=== PATIENT | male | born 1940 | race Caucasian/White ===

== ENCOUNTER 2022-11-28 12:38 | Inpatient (IN) ==
[2022-11-28] MEDS ORDERED: DOCUSATE SODIUM 100 MG CAPSULE PO PRN (13:50)
[2022-11-28] MEDS ORDERED: GLUCAGON 1 MG VIAL IM PRN (13:50)
[2022-11-28] MEDS ORDERED: ONDANSETRON 4 MG/2 ML VIAL IV PRN (13:50)
[2022-11-28] MEDS ORDERED: ACETAMINOPHEN 325 MG TABLET PO PRN (13:50)
[2022-11-28] MEDS: SODIUM CHLORIDE 0.9% 1,000 ML IV SCH (15:00)
[2022-11-28] MEDS ORDERED: DEXTROSE 10% 250 ML BAG IV PRN (16:35)
[2022-11-28 18:05] LABS: PT Patient Result > 178.9 SECS (10.1-12.1)
[2022-11-28 18:11] LABS: INR 23.2
[2022-11-28] MEDS: metFORMIN 500 MG TABLET PO SCH ×2 (18:18→18:25)
[2022-11-28] MEDS: DEXAMETHASONE 10 MG/1 ML VIAL IV SCH (18:18)
[2022-11-28] MEDS: cefTRIAXone 1,000 MG in SODIUM CHLORIDE 0.9% 100 ML IV SCH (18:18)
[2022-11-28] MEDS: INSULIN LISPRO 100 UNIT/ML SUBCUT SCH ×2 (18:20→21:10)
[2022-11-28 19:25] LABS: PT Patient Result > 178.9 SECS (10.1-12.1)
[2022-11-28] MEDS ORDERED: PHYTONADIONE 5 MG/5 ML ORAL.SYR PO ONE (19:43)
[2022-11-28] MEDS: acetaZOLAMIDE 250 MG TABLET PO SCH (21:06)
[2022-11-28] MEDS: SIMVASTATIN 20 MG TABLET PO SCH (21:06)
[2022-11-28] MEDS: MULTIVITAMIN (OCUVITE) TABLET PO SCH (21:06)
[2022-11-29 05:25] LABS: Hematocrit 30.9 VOL% (42.0-52.0); Hemoglobin 9.7 GM/DL (14.0-18.0); Immature Granulocytes % 0.4 %; Immature Granulocytes Absolute 0.02 #; Lymphocytes # 0.4 10*3/uL (1.4-4.0); Lymphocytes % 8.4 % (21.2-54.2); Mean Corpuscular HGB Conc 31.4 GM/DL (32-36); Mean Corpuscular Volume 90.4 FL (87-102); Monocytes # 0.1 10*3/uL (0.11-0.8); Monocytes % 2.2 % (1.7-12.7); Platelet Count 182 T/CUMM (130-400); Red Blood Count 3.42 MC/CUMM (3.8-5.5); Red Cell Distribution Width 13.2 % (9.3-17.3); White Blood Count 4.5 T/CUMM (4-12)
[2022-11-29 05:46] LABS: PT Patient Result 125.6 SECS (10.1-12.1)
[2022-11-29 05:56] LABS: INR 13.7
[2022-11-29 06:01] LABS: Alanine Aminotransferase 50 U/L (16-61); Albumin 2.4 G/DL (3.4-5.0); Alkaline Phosphatase 95 U/L (45-117); Aspartate Amino Transferase 24 U/L (0-37); Bilirubin,Total < 0.39 MG/DL (0.20-1.00); Blood Urea Nitrogen 17 MG/DL (7-18); Calcium 8.9 MG/DL (8.5-10.1); Carbon Dioxide 17 MMOL/L (21-32); Chloride 110 MMOL/L (98-107); Glucose 296 MG/DL (74-106); Potassium 4.1 MMOL/L (3.5-5.1); Sodium 136 MMOL/L (136-145); Total Protein 7.2 G/DL (6.4-8.2)
[2022-11-29] MEDS: TAMSULOSIN 0.4 MG CAPSULE PO SCH (08:40)
[2022-11-29] MEDS: amLODIPine 5 MG TABLET PO SCH (08:40)
[2022-11-29] MEDS: MULTIVITAMIN (OCUVITE) TABLET PO SCH ×2 (08:40→21:29)
[2022-11-29] MEDS: FINASTERIDE 5 MG TABLET PO SCH (08:40)
[2022-11-29] MEDS: acetaZOLAMIDE 250 MG TABLET PO SCH ×2 (08:41→21:29)
[2022-11-29] MEDS: MULTIVITAMIN (CENTRUM) TABLET PO SCH (08:41)
[2022-11-29] MEDS: PANTOPRAZOLE 40 MG TABLET PO SCH (08:41)
[2022-11-29] MEDS: traMADol 50 MG TABLET PO PRN (08:49)
[2022-11-29] MEDS: INSULIN LISPRO 100 UNIT/ML SUBCUT SCH ×4 (08:50→21:29)
[2022-11-29] MEDS: FAMOTIDINE 10 MG PO SCH (08:50)
[2022-11-29] MEDS: DEXAMETHASONE 10 MG/1 ML VIAL IV SCH (08:50)
[2022-11-29] MEDS: SODIUM CHLORIDE 0.9% 1,000 ML IV SCH ×3 (09:07→21:28)
[2022-11-29] MEDS: MAGNESIUM CHLORIDE 64 MG TABLET PO SCH (09:34)
[2022-11-29] MEDS: METOPROLOL TARTRATE 50 MG TABLET PO SCH (11:33)
[2022-11-29] MEDS ORDERED: cefTRIAXone 1,000 MG in SODIUM CHLORIDE 0.9% 100 ML IV SCH (15:00)
[2022-11-29] MEDS: cefTRIAXone 1,000 MG in SODIUM CHLORIDE 0.9% 100 ML IV SCH (16:04)
[2022-11-29] MEDS ORDERED: WARFARIN 3 MG TABLET PO SCH (18:00)
[2022-11-29] MEDS: SIMVASTATIN 20 MG TABLET PO SCH (21:29)
[2022-11-30 05:40] LABS: Basophils % 0.1 % (0.0-0.8); Eosinophils % 0.2 % (0.00-10.9); Hematocrit 32.1 VOL% (42.0-52.0); Hemoglobin 9.8 GM/DL (14.0-18.0); Immature Granulocytes % 0.8 %; Immature Granulocytes Absolute 0.07 #; Lymphocytes # 0.9 10*3/uL (1.4-4.0); Lymphocytes % 10.2 % (21.2-54.2); Mean Corpuscular HGB Conc 30.5 GM/DL (32-36); Mean Platelet Volume 11.1 FL (9.6-12.0); Monocytes # 0.5 10*3/uL (0.11-0.8); Monocytes % 5.2 % (1.7-12.7); Neutrophils % 83.5 % (38.7-73.9); Platelet Count 204 T/CUMM (130-400); Red Blood Count 3.49 MC/CUMM (3.8-5.5); Red Cell Distribution Width 13.3 % (9.3-17.3); White Blood Count 8.9 T/CUMM (4-12)
[2022-11-30 05:53] LABS: INR 2.5
[2022-11-30 05:55] LABS: Osmolality,Calculated 282.8 MOS/KG (273-304); Potassium 3.9 MMOL/L (3.5-5.1)
[2022-11-30 06:11] LABS: PT Patient Result 26.2 SECS (10.1-12.1)
[2022-11-30] MEDS: acetaZOLAMIDE 250 MG TABLET PO SCH ×2 (08:49→20:10)
[2022-11-30] MEDS: amLODIPine 5 MG TABLET PO SCH (08:49)
[2022-11-30] MEDS: PANTOPRAZOLE 40 MG TABLET PO SCH (08:49)
[2022-11-30] MEDS: FINASTERIDE 5 MG TABLET PO SCH (08:49)
[2022-11-30] MEDS: MAGNESIUM CHLORIDE 64 MG TABLET PO SCH (08:49)
[2022-11-30] MEDS: TAMSULOSIN 0.4 MG CAPSULE PO SCH (08:49)
[2022-11-30] MEDS: MULTIVITAMIN (OCUVITE) TABLET PO SCH ×2 (08:49→20:10)
[2022-11-30] MEDS: MULTIVITAMIN (CENTRUM) TABLET PO SCH (08:49)
[2022-11-30] MEDS: DEXAMETHASONE 10 MG/1 ML VIAL IV SCH (08:50)
[2022-11-30] MEDS: FAMOTIDINE 10 MG PO SCH (08:50)
[2022-11-30] MEDS: INSULIN LISPRO 100 UNIT/ML SUBCUT SCH ×4 (08:51→21:25)
[2022-11-30] MEDS: METOPROLOL TARTRATE 50 MG TABLET PO SCH (10:10)
[2022-11-30] MEDS: traMADol 50 MG TABLET PO PRN (10:11)
[2022-11-30] MEDS: SODIUM CHLORIDE 0.9% 1,000 ML IV SCH ×2 (10:15→20:10)
[2022-11-30] MEDS: cefTRIAXone 1,000 MG in SODIUM CHLORIDE 0.9% 100 ML IV SCH (17:03)
[2022-11-30] MEDS: WARFARIN 5 MG TABLET PO SCH (17:09)
[2022-11-30] MEDS: SIMVASTATIN 20 MG TABLET PO SCH (20:10)
[2022-12-01] MEDS: SODIUM CHLORIDE 0.9% 1,000 ML IV SCH ×2 (06:25→17:08)
[2022-12-01] MEDS ORDERED: glyBURIDE 2.5 MG TABLET PO SCH (08:00)
[2022-12-01] MEDS: PANTOPRAZOLE 40 MG TABLET PO SCH (10:06)
[2022-12-01] MEDS: FINASTERIDE 5 MG TABLET PO SCH (10:07)
[2022-12-01] MEDS: METOPROLOL TARTRATE 50 MG TABLET PO SCH (10:07)
[2022-12-01] MEDS: MULTIVITAMIN (CENTRUM) TABLET PO SCH (10:07)
[2022-12-01] MEDS: traMADol 50 MG TABLET PO PRN ×2 (10:07→23:35)
[2022-12-01] MEDS: amLODIPine 5 MG TABLET PO SCH (10:07)
[2022-12-01] MEDS: DEXAMETHASONE 4 MG/1 ML VIAL IV SCH (10:08)
[2022-12-01] MEDS: DOCUSATE SODIUM 100 MG CAPSULE PO SCH (10:08)
[2022-12-01] MEDS: MAGNESIUM CHLORIDE 64 MG TABLET PO SCH (10:08)
[2022-12-01] MEDS: FAMOTIDINE 10 MG PO SCH (10:09)
[2022-12-01] MEDS: MULTIVITAMIN (OCUVITE) TABLET PO SCH ×2 (10:09→21:10)
[2022-12-01] MEDS: TAMSULOSIN 0.4 MG CAPSULE PO SCH (10:09)
[2022-12-01] MEDS: acetaZOLAMIDE 250 MG TABLET PO SCH ×2 (10:10→21:10)
[2022-12-01] MEDS: INSULIN LISPRO 100 UNIT/ML SUBCUT SCH ×4 (10:10→21:10)
[2022-12-01] MEDS: cefTRIAXone 1,000 MG in SODIUM CHLORIDE 0.9% 100 ML IV SCH (17:04)
[2022-12-01] MEDS: glyBURIDE 2.5 MG TABLET PO SCH (17:09)
[2022-12-01] MEDS: WARFARIN 5 MG TABLET PO SCH (17:09)
[2022-12-01] MEDS: SIMVASTATIN 20 MG TABLET PO SCH (21:10)
[2022-12-02] MEDS: SODIUM CHLORIDE 0.9% 1,000 ML IV SCH ×3 (03:30→23:32)
[2022-12-02 05:43] LABS: Basophils % 0.1 % (0.0-0.8); Eosinophils # 0.1 10*3/uL (0.0-0.87); Eosinophils % 0.9 % (0.00-10.9); Hematocrit 34.5 VOL% (42.0-52.0); Hemoglobin 10.8 GM/DL (14.0-18.0); Immature Granulocytes % 1.5 %; Immature Granulocytes Absolute 0.17 #; Lymphocytes % 9.4 % (21.2-54.2); Mean Corpuscular HGB Conc 31.3 GM/DL (32-36); Mean Corpuscular Volume 90.8 FL (87-102); Mean Platelet Volume 10.9 FL (9.6-12.0); Monocytes # 0.7 10*3/uL (0.11-0.8); Monocytes % 6.4 % (1.7-12.7); Neutrophils % 81.7 % (38.7-73.9); Platelet Count 281 T/CUMM (130-400); Red Cell Distribution Width 13.4 % (9.3-17.3)
[2022-12-02 06:01] LABS: INR 3.9; PT Patient Result 39.2 SECS (10.1-12.1)
[2022-12-02 06:03] LABS: Calcium 9.4 MG/DL (8.5-10.1); Osmolality,Calculated 275.7 MOS/KG (273-304); Potassium 3.6 MMOL/L (3.5-5.1)
[2022-12-02] MEDS: INSULIN LISPRO 100 UNIT/ML SUBCUT SCH ×4 (08:11→21:35)
[2022-12-02] MEDS: FINASTERIDE 5 MG TABLET PO SCH (08:40)
[2022-12-02] MEDS: TAMSULOSIN 0.4 MG CAPSULE PO SCH (08:41)
[2022-12-02] MEDS: DEXAMETHASONE 4 MG/1 ML VIAL IV SCH (08:41)
[2022-12-02] MEDS: MULTIVITAMIN (CENTRUM) TABLET PO SCH (08:41)
[2022-12-02] MEDS: MULTIVITAMIN (OCUVITE) TABLET PO SCH ×2 (08:41→21:35)
[2022-12-02] MEDS: amLODIPine 5 MG TABLET PO SCH (08:41)
[2022-12-02] MEDS: METOPROLOL TARTRATE 50 MG TABLET PO SCH (08:41)
[2022-12-02] MEDS: PANTOPRAZOLE 40 MG TABLET PO SCH (08:41)
[2022-12-02] MEDS: DOCUSATE SODIUM 100 MG CAPSULE PO SCH (08:41)
[2022-12-02] MEDS: MAGNESIUM CHLORIDE 64 MG TABLET PO SCH (08:41)
[2022-12-02] MEDS: acetaZOLAMIDE 250 MG TABLET PO SCH ×2 (08:41→21:35)
[2022-12-02] MEDS: FAMOTIDINE 10 MG PO SCH (08:46)
[2022-12-02] MEDS: glyBURIDE 2.5 MG TABLET PO SCH ×2 (08:46→16:02)
[2022-12-02] MEDS: cefTRIAXone 1,000 MG in SODIUM CHLORIDE 0.9% 100 ML IV SCH (16:00)
[2022-12-02] MEDS: SIMVASTATIN 20 MG TABLET PO SCH (21:35)
[2022-12-02] MEDS: traMADol 50 MG TABLET PO PRN (23:20)
[2022-12-03] MEDS ORDERED: FLUCONAZOLE 150 MG TABLET PO ONE (08:00)
[2022-12-03] MEDS: glyBURIDE 2.5 MG TABLET PO SCH ×2 (08:40→16:11)
[2022-12-03] MEDS: FAMOTIDINE 10 MG PO SCH (08:41)
[2022-12-03] MEDS: NYSTATIN 500,000 UNIT/5 ML UDCUP SWISH/SWAL SCH ×4 (08:59→22:35)
[2022-12-03] MEDS: INSULIN LISPRO 100 UNIT/ML SUBCUT SCH ×4 (09:00→23:08)
[2022-12-03] MEDS ORDERED: LACTULOSE 20 GM/30 ML UDCUP PO ONE (09:00)
[2022-12-03] MEDS: MAGNESIUM CHLORIDE 64 MG TABLET PO SCH (09:02)
[2022-12-03] MEDS: FINASTERIDE 5 MG TABLET PO SCH (09:02)
[2022-12-03] MEDS: MULTIVITAMIN (OCUVITE) TABLET PO SCH ×2 (09:02→22:36)
[2022-12-03] MEDS: MULTIVITAMIN (CENTRUM) TABLET PO SCH (09:02)
[2022-12-03] MEDS: acetaZOLAMIDE 250 MG TABLET PO SCH ×2 (09:03→22:36)
[2022-12-03] MEDS: METOPROLOL TARTRATE 50 MG TABLET PO SCH (09:04)
[2022-12-03] MEDS: amLODIPine 5 MG TABLET PO SCH (09:05)
[2022-12-03] MEDS: DOCUSATE SODIUM 100 MG CAPSULE PO SCH (09:07)
[2022-12-03] MEDS: cefTRIAXone 1,000 MG in SODIUM CHLORIDE 0.9% 100 ML IV SCH (09:07)
[2022-12-03] MEDS: TAMSULOSIN 0.4 MG CAPSULE PO SCH (09:07)
[2022-12-03] MEDS: PANTOPRAZOLE 40 MG TABLET PO SCH (09:07)
[2022-12-03] MEDS: SODIUM CHLORIDE 0.9% 1,000 ML IV SCH ×2 (09:12→20:30)
[2022-12-03] MEDS: traMADol 50 MG TABLET PO PRN (11:51)
[2022-12-03] MEDS ORDERED: TUBERCULIN SKIN TEST 0.1 ML SYRINGE INTRADERM ONE (14:16)
[2022-12-03] MEDS ORDERED: WARFARIN 4 MG TABLET PO SCH (18:00)
[2022-12-03] MEDS: SIMVASTATIN 20 MG TABLET PO SCH (22:36)
[2022-12-04] MEDS: SODIUM CHLORIDE 0.9% 1,000 ML IV SCH (06:41)
[2022-12-04] MEDS: glyBURIDE 2.5 MG TABLET PO SCH (07:15)
[2022-12-04 08:01] VITALS: BP 133/62
[2022-12-04] MEDS: amLODIPine 5 MG TABLET PO SCH (08:01)
[2022-12-04] MEDS: METOPROLOL TARTRATE 50 MG TABLET PO SCH (08:01)
[2022-12-04] MEDS: FINASTERIDE 5 MG TABLET PO SCH (08:01)
[2022-12-04] MEDS: DOCUSATE SODIUM 100 MG CAPSULE PO SCH (08:01)
[2022-12-04] MEDS: FAMOTIDINE 10 MG PO SCH (08:01)
[2022-12-04] MEDS: NYSTATIN 500,000 UNIT/5 ML UDCUP SWISH/SWAL SCH (08:01)
[2022-12-04] MEDS: MULTIVITAMIN (CENTRUM) TABLET PO SCH (08:01)
[2022-12-04] MEDS: PANTOPRAZOLE 40 MG TABLET PO SCH (08:01)
[2022-12-04] MEDS: acetaZOLAMIDE 250 MG TABLET PO SCH (08:01)
[2022-12-04] MEDS: TAMSULOSIN 0.4 MG CAPSULE PO SCH (08:01)
[2022-12-04] MEDS: MULTIVITAMIN (OCUVITE) TABLET PO SCH (08:01)
[2022-12-04] MEDS: MAGNESIUM CHLORIDE 64 MG TABLET PO SCH (08:02)
[2022-12-04] MEDS: cefTRIAXone 1,000 MG in SODIUM CHLORIDE 0.9% 100 ML IV SCH (08:02)
[2022-12-04] MEDS: INSULIN LISPRO 100 UNIT/ML SUBCUT SCH (09:08)
== END 2022-12-04 09:09 | DRG 193 ==
LOC: N.2E
PROVIDERS: ADMIT Family Medicine; ATTEND Family Medicine